=== PATIENT | male | born 1940 | race Caucasian/White ===

== ENCOUNTER → 2017-07-12 | Outpatient (CLI) | payer OTHER ==
[~2017-07-12] VITALS: Ht 175.3 cm; Wt 108.4 kg
[~2017-07-12] MED LIST: ASPIR 8181 M1 PO; ASPIR 8181 MG PO; CARDURA4 MG PO; COZAAR 50 MG TA50 M2 PO; GLIPIZIDE 10 MG10 MG PO; HYDROCODON-ACE1 EAC7 PO; IMDUR 30 MG TAB30 M1 PO; IRON325 PO; JARDIANCE25 MG PO; LIPITOR10 MG PO; METFORMIN HCL500 MG PO; NORVASC5 MG PO; ORPHENADRINE C100 M2 PO; PANTOPRAZOLE SO40 M1 PO; PROSCAR 5MG TABL5 MG PO; PROTONIX40 M1 PO; STOOL SOFTENER100 M1 PO; SYNTHROID75 MCG PO; SYNTHROID88 MCG PO; TRAMADOL 50 MG50 MG PO; TRESIBA FL100 UNIT/1 INJECTION; UNICOMPLEX M TA1 TA1 PO
--- NOTE | ~2017-07-12 | CATHLAB ---
[facility] [address] [address] INVASIVE PROCEDURE REPORT Name: GAMALIEL PAN Maria G Room #: REG [facility] [id number] Admission: 07/12/17 Attend Phys: Mathieu Mesa Discharge: Date of : 44 Date of Service: 07/16/17 1240 Report #: [id number] THIS REPORT FOR: //name// APPROVED REPORT Patient Details Patient Status: Out-Patient Room #: The patient is a 76 year-old male Event Personnel Mathieu Kaur Apparel Cutter, Anais Perez, Timi Leslie Penny, Wes RN, Maritza Godinez RN rn informatics Performed Art Access - R femoral artery* 78653 Initial Mod Sed Same Phys/QHP Gr5y [id number] Left Heart Cath w/or w/o Coronaries [id number] [facility] Hemostasis with Manual pressure, supervision of conscious sedation Indication Positive stress test, Chest pain Procedure Narrative The patient was brought electively to the Cardiac Catheterization Laboratory and was prepped and draped in a sterile manner. The Right Groin^ was infiltrated with 1% Lidocaine subcutaneous anesthesia. A PINNACLE 4FR Sheath #[id number] sheath was inserted into the RFA^. Coronary angiography was performed using coronary diagnostic catheters. The right coronary system was accessed and visualized with a JR 4 catheter. The left coronary system was accessed and visualized with a JL 5 catheter. The left ventricle was accessed and visualized with a Pigtail catheter. Left ventricular/Aortic Valve gradient assessed via catheter pullback. Hemostasis was obtained with manual pressure following sheath removal without any complications. The patient tolerated the procedure well and there were no complications associated with the procedure. There was no hematoma. Intraoperative Conscious Sedation Sedation start time: 10:00 Case end Time: 10:13 Versed 2.0 mg Fluoro Time: 2.14 minutes Dose: DAP 4346.00 cGycm2 653 mGy [facility] [place] [address] INVASIVE PROCEDURE REPORT Name: GAMALIEL PAN Room #: REG [facility]#: [id number] Admission: 07/12/17 Attend Phys: Mathieu Mesa Discharge: Date of : 44 Date of Service: 07/16/17 1240 Report #: [id number] Contrast Type and Amount: Omnipaque 60 ml Coronary Angiography The patient's coronary anatomy is right dominant. Diagnostic Cath Left Main Normal origin and caliber free of significant obstructive lesions. Left anterior descending left circumflex. LAD Small to moderate caliber vessel type III. It courses in the anterior interventricular sulcus. The proximal segment there is a previously placed stent which is widely patent without any obstructive lesions identified. The LAD then continues on giving rise to septal and diagonal branches. There appears to be a bend in the vessel and less than 50% lesion beyond the PVC mentioned stent. The vessel then tapers towards the apex and terminates post-rest left ventricular chamber free of high-grade disease. Diagonal 1 Small-caliber vessel without significant high-grade obstructive lesions Circumflex Small to moderate caliber vessel nondominant. Courses posteriorly giving rise to posterior lateral wall marginal branches which are free of high-grade disease although there is evidence of luminal irregularities in its course. OM1 Small caliber vessel moderate luminal irregularities noted no high-grade lesions present OM2 All caliber vessel in the posterior lateral wall free of high-grade disease although there is evidence of luminal irregularities Right Coronary Large-caliber vessel normal origin with luminal irregularities of less than 30% identified. It gives her some marginal branches free of high-grade disease. And continues posteriorly giving rise to posterior wall branch and posterior descending artery with irregularities noted but no high-grade lesions R PDA Moderate caliber vessel coursing in the posterior interventricular sulcus free of high-grade disease Left Ventriculography Left Ventriculography was not performed. Hemodynamics The aortic pressure is 135/64 mmHg with a mean of 95 mmHg. The left ventricular pressure is 126/19 mmHg with a mean of mmHg. The left ventricular end diastolic pressure is 26 mmHg. Conclusion [facility] [address] [place] [address] INVASIVE PROCEDURE REPORT Name: GAMALIEL PAN Room #: REG Sybil#: [id number] Admission: 07/12/17 Attend Phys: Mathieu Mesa Discharge: Date of : 44 Date of Service: 07/16/17 1240 Report #: [id number] 1. Coronary artery disease nonobstructive three-vessel 2. Abnormal hemodynamics with mildly elevated left ventricular end-diastolic pressures Recommendations Cardiac Risk Reduction Program Aggressive Medical Therapy <ELECTRONICALLY SIGNED> By: Mathieu Kaur MD 07/16/17 1240 1240 1240 Mathieu Kaur MD /INF
--- NOTE | ~2017-07-12 | EKG ---
[place] [address] [address] [place] [address] ELECTROCARDIOGRAM REPORT Name: GAMALIEL PAN Room #: REG [facility] [id number] Admission: 07/12/17 Attend Phys: Mathieu Kaur Discharge: Date of : 42 Report #: [id number] THIS REPORT FOR: //name// [facility] Test Date: 2017-07-12 Test Time: 08:02:27 Pat Name: GAMALIEL PAN Department: Room: Gender: Rehabilitation Therapy Aide: Pascale GÓMEZ : 1940 Requested By: Mathieu Kaur Order Number: [id number] MD: Adriel Bhagat Measurements Intervals [place] Rate: 70 P: -7 [place]: 167 QRS: -12 QRSD: 100 T: 34 QT: 390 QTc: 421 Interpretive Statements Sinus rhythm Normal tracing Compared to ECG 07/15/2008 07:32:22 Sinus bradycardia no longer present Electronically Signed On 07-12-2017 8:42:35 [employer]ER by Adriel Bhagat [email or web address] <ELECTRONICALLY SIGNED> By: Adriel Bhagat MD, [facility] 07/12/1742 1 1 Adriel Bhagat MD, [facility] /EPI
[2017-07-12 08:17] VITALS: BP 141/64
[2017-07-12 08:58] LABS: WBC 5.2 thou/uL (4.0-11.0)
[2017-07-12 09:01] LABS: HEMATOCRIT 22.2 % (42.0-52.0); HEMOGLOBIN 6.5 gm/dL (14.0-18.0); MCH 16.8 pg (26.0-34.0); MCHC 29.1 g/dL (28.0-37.0); MCV 57.5 fL (80.0-100.0); RBC 3.86 mil/uL (4.50-6.00); RDW 19.3 % (10.5-14.5)
[2017-07-12 09:08] LABS: CALCIUM 8.7 mg/dL (8.5-10.1)
== END ==
LOC: CATH 07:12
PROVIDERS: Internal Medicine
DX: I25.10 Atherosclerotic heart disease of native coronary artery without angina pectoris (principal); I10 Essential (primary) hypertension; E11.9 Type 2 diabetes mellitus without complications; E03.9 Hypothyroidism, unspecified; E78.5 Hyperlipidemia, unspecified; Z98.890 Other specified postprocedural states; Z95.5 Presence of coronary angioplasty implant and graft; Z79.899 Other long term (current) drug therapy; Z87.891 Personal history of nicotine dependence; Z79.82 Long term (current) use of aspirin

== ENCOUNTER 2017-08-30 15:15 | Inpatient (IN) | payer OTHER ==
[2017-08-30] VITALS (32 sets, daily range): BP systolic 94–139; BP diastolic 50–90
[~2017-08-30] VITALS: Ht 175.3 cm; Wt 103.4 kg
--- NOTE | ~2017-08-30 | P ---
[facility] [place] [address] PROCEDURE REPORT Name: GAMALIEL PAN Room #: 242-P ADM IN M.R.#: [id number] Admission: 08/30/17 Attend Phys: Joselo Marrero MD Discharge: Date of : 42 Report #: [id number] THIS REPORT FOR: //name// CC: Joselo Desai PROCEDURE PERFORMED: Upper endoscopy, diagnostic. PHYSICIAN: Pancho Eric MD MEDICATIONS: Fentanyl 75 mcg IV, Versed 3 mg IV. DESCRIPTION OF PROCEDURE: Please see initial consultation for details. The patient admitted with severe anemia. CT scan does not show any retroperitoneal bleed. Decision was to proceed with an EGD. Troponin levels are elevated, likely due to demand ischemia. I had a discussion with Cardiology prior to proceeding with an EGD today. Risks and benefits of procedure were discussed with the patient and he is agreeable to proceed. Anesthesia was not available for propofol sedation as they were occupied in the operating room with surgical procedures. Hence, conscious sedation was used. The patient was placed in left lateral decubitus position and medication was administered sequentially as above to achieve optimal sedation. Once optimal sedation was achieved, the Fujinon gastroscope was introduced under direct visualization through the oropharynx. The exam was completed to the second portion of duodenum. The esophagus was unremarkable and GE junction did not show any strictures or tears. Mild grade 1 reflux esophagitis was noted in the distal esophagus. On entering the stomach, green bilious fluid were noted that was suctioned out. Careful examination of the stomach including retroflexed view of the stomach did not show any ulcers or bleeding. There was no stigmata of bleeding. There was mild diffuse gastritis noted. The Fujinon gastroscope was then intubated through the pylorus into the duodenal bulb and examined from the second portion of the duodenum. The scope was then withdrawn without any immediate complication. POSTPROCEDURE DIAGNOSES AND FINDINGS: 1. No evidence of ulcer or bleeding/stigmata of bleeding to explain his severe anemia. 2. Mild diffuse gastritis and mild grade 1 reflux esophagitis are the only findings on exam today. RECOMMENDATIONS: 1. Change PPI to pantoprazole 40 mg IV daily. 2. Advance diet as tolerated. 3. Consideration for colonoscopy will be considered in the near future depending on clinical course. [address] [address] PROCEDURE REPORT Name: GAMALIEL PAN Room #: 242-P [facility] IN .R.#: [id number] Admission: 08/30/17 Attend Phys: Joselo Marrero MD Discharge: Date of : 42 Report #: [id number] Thank you for allowing me to participate in the care of the patient. <ELECTRONICALLY SIGNED> By: Pancho Eric MD 08/31/17 1656 1225 1639 Pancho Eric MD /nt
--- NOTE | ~2017-08-30 | HC ---
[facility] [place] [address] CONSULTATION Name: GAMALIEL PAN Room #: 355-P ADM IN M.R.#: [id number] Admission: 08/30/17 Attend Phys: Joselo Marrero MD Discharge: Date of : 42 Report #: [id number] THIS REPORT FOR: //name// CC: Joselo Desai TYPE OF REPORT: Infectious disease consultation. REASON FOR CONSULTATION: I was asked to evaluate concerning suspected septic shock. HISTORY OF PRESENT ILLNESS: The patient is a 76-year old with underlying history of coronary disease, diabetes, who 6 weeks ago, underwent coronary catheterization at [facility] outpatient clinic. He had a previous stent. No treatable lesion was identified. He was discharged home after the procedure. It was noted that his hemoglobin was 6.5 at that time. I found no record of further intervention. He has been visiting his who is on hospice earlier today. Developed nausea and vomiting. He vomited twice. He stated no blood. Second time he passed out, landed on the ground. It was difficult to arouse and he was brought into the Emergency Room at [facility]. There he was hypotensive. He has received IV fluids and when his hemoglobin was identified at 6.1, he was given blood transfusion. He was then transported to [facility] for further treatment. Blood pressure on admission was in the 80, systolic. The patient now is alert and responsive. He stated that prior to today, he felt well. He has had no diarrhea. No melena or hematochezia. Again noted that the emesis was of normal color. He does take aspirin. REVIEW OF SYSTEMS: Notes no rash. No headache. No chest pain. Denies any injury when he passed out. The nausea has resolved. He has had no dysuria or frequency. No arthritis or rash. ALLERGIES: None known. MEDICATIONS: As noted on his MAR including Norvasc, aspirin, Lipitor, Synthroid, Glucophage, multivitamin, Glucotrol, , testosterone, insulin and Imdur. He was given dose of cefepime in the Emergency Room followed by meropenem and a dose of vancomycin. PAST MEDICAL HISTORY: Hypertension, coronary artery disease, coronary stent, total knee arthroplasty and BPH. FAMILY HISTORY: Noncontributory. SOCIAL HISTORY: He is a past smoker. No significant alcohol intake. 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 [address] [address] CONSULTATION Name: GAMALIEL PAN Room #: 355-P [facility] IN [facility]#: [id number] Admission: 08/30/17 Attend Phys: Joselo Marrero MD Discharge: Date of : 42 Report #: [id number] REVIEW OF SYSTEMS: As noted above. PHYSICAL EXAMINATION: VITAL SIGNS: He is afebrile, blood pressure 114/56 and heart rate 86. He is on 8 liters of oxygen per nasal cannula. GENERAL: He was alert and cooperative. He gave a reasonable history. HEENT: Unremarkable. NECK: Supple. No adenopathy. No rash. No decubiti. CHEST: Clear. HEART: Regular, without murmur. ABDOMEN: Moderately distended but nontender. No hepatosplenomegaly or mass appreciated. Normal bowel sounds. GENITALIA: External genitalia unremarkable with indwelling Tolliver catheter. Right groin was normal. There were no palpable masses. LABORATORY DATA: When he presented to the Emergency Room, his hemoglobin was 6.1; WBC 3.5 and platelet count 331,000. Differential was unremarkable. Urinalysis was unremarkable. Creatinine 1.4, BUN 20, sodium 142, potassium 3.3 and bicarbonate of 19. Liver function test normal. Troponin negative. BNP 64. Lactate 5. He had received 1 unit of blood transfusion prior to his transfer; hemoglobin here 7.3; WBC 11.5 and platelet count 292,000. Differential unremarkable. Glucose 163. Lactate down to 3. Procalcitonin 34. INR 1. ABG on 8 liters showed a pO2 of 92, pCO2 34 and pH 7.32. RADIOLOGICAL DATA: Chest x-ray, no acute pulmonary infiltrate and mild cardiomegaly. IMPRESSION: A 76-year old presents with shock, anemia, gastroenteritis with emesis leading to a syncopal episode. So far no evidence of infection identified. Also, no evidence of bleeding source identified. It is noted that 6 weeks ago, his hemoglobin was 6.5. The patient was unaware of this. I am unclear if this has been worked up any further. It is also noted that the hemoglobin was 6.5 before his procedure. This would make a retroperitoneal hematoma less likely. He has had no back pain or changes in his leg strength or sensation. RECOMMENDATIONS: We will obtain cultures of blood and repeat his chest x-ray. Continue broad antibiotic coverage for healthcare-associated organisms considering his recent catheterization. We would have Cardiology followup regarding his syncopal episode, although I suspect it was most likely vasovagal [facility] [address] [place] [address] CONSULTATION Name: GAMALIEL PAN Room #: 355-P ADM IN M.R.#: [id number] Admission: 08/30/17 Attend Phys: Joselo Marrero MD Discharge: Date of : 42 Report #: [id number] after his vomiting episode. He will have serial CBCs. Gastrointestinal service is following. Agree with plan for CT scan of abdomen and pelvis. <ELECTRONICALLY SIGNED> By: Abraham Campos MD 09/02/17 0815 2033 2141 Abraham Campos MD /nt
--- NOTE | ~2017-08-30 | HC ---
[facility] [place] [address] CONSULTATION Name: GAMALIEL PAN Room #: 242-P ADM IN M.R.#: [id number] Admission: 08/30/17 Attend Phys: Joselo Marrero MD Discharge: Date of : 42 Report #: [id number] THIS REPORT FOR: //name// CC: Joselo Desai DATE OF SERVICE: 08/30/2017 PULMONARY CONSULTATION REFERRAL PHYSICIAN: Dr. Marrero. REASON FOR REFERRAL: Hypoxia. HISTORY OF PRESENT ILLNESS: The patient is a 76-year-old white male who was transferred from [facility] for syncopal episode. He was found to be anemic, hypotensive. A pulmonary consultation was requested. The patient was visiting his who is terminal, he then had a syncopal episode. He was brought to the [facility]. Initial study showed hemoglobin of 6.1. He was hypotensive. He was subsequently transferred to [facility]. When he arrived, he was found to be hypoxic. He was placed on high flow O2 with saturation around 97%. The patient states that he has smoked in the past. He has never been diagnosed with COPD. He does not have specific complaints, though he states that he does not feel well. He denies any abdominal pain. Denies any recent nausea, vomiting, diarrhea, hematemesis, hematochezia, melena, hematuria or polyuria. PAST MEDICAL HISTORY: Notable for hypertension, coronary artery disease, mild disease based on recent cardiac catheterization in July 2017, diabetes mellitus type 2. PAST SURGICAL HISTORY: Unremarkable. ALLERGIES: None. HOME MEDICATIONS: List are reviewed including insulin, multivitamins, Proscar, aspirin, Cardura, metformin, levothyroxine, amlodipine, Norvasc, glipizide, Lipitor, losartan, Imdur. FAMILY HISTORY: Noncontributory. [facility] [address] [place] [address] CONSULTATION Name: GAMALIEL PAN Room #: 242-P [facility] IN [facility]#: [id number] Admission: 08/30/17 Attend Phys: Joselo Marrero MD Discharge: Date of : 42 Report #: [id number] SOCIAL HISTORY: He has smoked in the past. Denies any alcohol use. He is . REVIEW OF SYSTEMS: As mentioned above, otherwise somewhat limited as the patient is not a good historian at present. He is awake, alert, but says he is okay without specific complaints. PHYSICAL EXAMINATION: GENERAL: He is awake, alert, appears moderately distressed. VITAL SIGNS: Temperature is 98 degrees Fahrenheit, pulse is 81, respiratory rate is 20, blood pressure is 100/54 mmHg, saturation 97%. HEENT: Unremarkable. NECK: Supple, no lymphadenopathy or thyromegaly. CHEST: Breath sounds are fair without any obvious rales or wheezes. CARDIOVASCULAR: Normal S1, S2. No murmurs or gallop. There is no JVD, no carotid bruit. Pulses are 2+/4+ bilaterally. ABDOMEN: Soft, nontender, no organomegaly or masses felt. GENITOURINARY: Deferred. RECTAL: Deferred. EXTREMITIES: There is no edema, cyanosis or clubbing. LABORATORY DATA: Chest x-ray shows mild cardiomegaly, small lung volumes, mild increase in pulmonary vascular markings, no obvious infiltrate. Arterial blood gas revealed pH 7.32, pCO2 of 34, pO2 of 92 on 8 liters of O2. The rest of the laboratory is pending. IMPRESSION: 1. Syncope, hypotension, anemia in this 76-year-old white male. His hemoglobin was measured at 6.1. He has a history of peptic ulcer disease diagnosed about 30 years ago. Suspect upper gastrointestinal bleed as a source for his anemia resulting in hypotension. 2. Hypoxia. The patient has smoked, but denies any past history of chronic obstructive pulmonary disease. Hypoxia is due to profound anemia. Since the patient has smoked in the past, we will initiate bronchodilators. 3. Hypertension. 4. Diabetes mellitus, type 2. 5. Hypothyroidism. RECOMMENDATIONS: Agree with current management including IV fluids. Deep venous thrombosis and gastrointestinal prophylaxis recommended, though we will hold anticoagulants as heparin products for now given possibility of gastrointestinal bleed. Gastroenterology has been consulted. We will start the bronchodilators. Wean O2 for saturation 90%. At this time, I do not think the patient has underlying chronic obstructive pulmonary disease. [address] [place] [address] CONSULTATION Name: GAMALIEL PAN Maria G Room #: 242-P [facility] IN M.R.#: [id number] Admission: 08/30/17 Attend Phys: Joselo Marrero MD Discharge: Date of : 42 Report #: [id number] We will need to monitor the patient closely given the blood transfusion for possible transfusion-related acute lung injury. Thank you for this consultation. <ELECTRONICALLY SIGNED> By: Donal Calderon MD 08/31/17 1431 1756 0404 Donal Calderon MD /nt
--- NOTE | ~2017-08-30 | EKG ---
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 : 1940 Requested By: Donal Calderon Order Number: [id number] MD: Adriel Bhagat Measurements Intervals [place] Rate: 81 P: 34 [place]: 164 QRS: -23 QRSD: 100 T: 47 QT: 368 QTc: 428 Interpretive Statements Sinus rhythm Inferior infarct, old Compared to ECG 07/12/2017 08:02:27 No significant change was found Electronically Signed On 08-31-2017 12:23:07 CDT by Adriel Bhagat [email or web address] <ELECTRONICALLY SIGNED> By: Adriel Bhagat MD, [facility] 08/31/17 1223 1039 1039 Adriel Bhagat MD, [facility] /EPI
--- NOTE | ~2017-08-30 | HC ---
[facility] [place] [address] CONSULTATION Name: GAMALIEL PAN Room #: 355-P [facility] IN M.R.#: [id number] Admission: 08/30/17 Attend Phys: Joselo Marrero MD Discharge: 09/02/17 Date of : 42 Report #: [id number] THIS REPORT FOR: //name// CC: Joselo Desai REASON FOR CONSULTATION: Elevated troponin. HISTORY OF PRESENT ILLNESS: The patient is a 76-year-old gentleman with a history of remote LAD stenting in 1995. His history includes hypertension, diabetes and dyslipidemia. He has recently been evaluated by Dr. Mathieu Kaur and underwent coronary angiography on 07/12/2017. This demonstrated mild nonobstructive 3-vessel coronary artery disease. Medical therapy was recommended. Ventriculography was not performed. Now, presents following a syncopal episode that occurred while he was visiting his who is in hospice. He had vomited twice, no blood. Second time he vomited, he passed out and was difficult to arouse. He went to the Emergency Room at [facility] where he was hypotensive and had a hemoglobin of 6.1. On arrival here, his blood pressure was in the 80s. With fluid resuscitation, his blood pressure is improved. He denies chest heaviness or pressure. No heart failure symptoms including orthopnea, paroxysmal nocturnal dyspnea, or lower extremity edema. No history of near syncope or syncope. ALLERGIES: No known drug allergies. MEDICATIONS: Include amlodipine 5 mg daily, aspirin 81 mg daily, atorvastatin 10 mg daily, glipizide 10 mg twice daily, Imdur 30 mg daily, Jardiance 25 mg daily, levothyroxine 75 mcg daily, losartan 50 mg daily, Glucophage 1000 mg twice daily, and a multivitamin. PAST MEDICAL HISTORY: His past history and medical records have been reviewed and includes a history of coronary artery disease with remote stenting, hypertension, dyslipidemia, diabetes, total knee replacement, BPH. SOCIAL HISTORY: He is a former smoker, nondrinker. FAMILY HISTORY: Unremarkable for premature coronary artery disease. REVIEW OF SYSTEMS: All systems negative except as that noted above. PHYSICAL EXAMINATION: GENERAL: He is a pleasant gentleman who is alert and in no distress. VITAL SIGNS: Blood pressure is 103/52, heart rate of 90 and regular. He is afebrile, 5 feet 9 inches tall, 230 pounds. HEENT: There are neither xanthelasma, subcutaneous xanthomata, oral mucosal or digital cyanosis or [place] [address] CONSULTATION Name: GAMALIEL PAN Room #: 355-P [facility] IN ..#: [id number] Admission: 08/30/17 Attend Phys: Joselo Marrero MD Discharge: 09/02/17 Date of : 42 Report #: [id number] CHEST: Clear to auscultation and percussion. CARDIOVASCULAR: Regular rate and rhythm with normal S1, S2. No murmurs or rubs. ABDOMEN: Soft and nontender. EXTREMITIES: Without cyanosis, clubbing or edema. Radial pulses are 2+. NEUROLOGIC: He is alert with a nonfocal exam. LABORATORY DATA: EKG: Normal sinus rhythm, normal tracing. Sodium 141, potassium 3.9, creatinine 1.0. Troponin 4.4. White count 10.2, hemoglobin 6.8, platelet count 245. Chest x-ray demonstrates a prominent aortic arch. IMPRESSION: 1. Non-Q-wave myocardial infarction. 2. Hypovolemic shock with syncope. 3. Gastrointestinal blood loss, severe anemia. 4. Coronary artery disease with nonocclusive coronary artery disease by very recent angiography. 5. Diabetes. 6. Hypertension. RECOMMENDATIONS: 1. Medical therapy for coronary artery disease. Antiplatelet therapy is currently contraindicated. I will review his most recent coronary angiograms. 2. We would consider transfusion therapy. I have discussed these issues with the patient. Thank you for asking me to participate in his care. <ELECTRONICALLY SIGNED> By: Adriel Bhagat MD, FACC 09/04/17 0822 1145 1604 Adriel Bhagat MD, FAC /nt
[~2017-08-30 15:15] MED LIST changes: -HYDROCODON-ACE1 EAC7 PO; -IRON325 PO; -ORPHENADRINE C100 M2 PO; -PANTOPRAZOLE SO40 M1 PO; -PROTONIX40 M1 PO; -STOOL SOFTENER100 M1 PO; -SYNTHROID88 MCG PO; -TRAMADOL 50 MG50 MG PO
[2017-08-30 16:18] LABS: HCO3 17.3 mmol/L (22.0-26.0); PCO2 34.2 mmHg (35.0-45.0); PO2 92.1 mmHg (80.0-100.0); pH 7.322 (7.360-7.450); sO2 96.6 % (92.0-98.0)
[2017-08-30 18:18] LABS: HEMATOCRIT 25.7 % (42.0-52.0); HEMOGLOBIN 7.3 gm/dL (14.0-18.0); MCH 17.1 pg (26.0-34.0); MCHC 28.2 g/dL (28.0-37.0); MCV 60.6 fL (80.0-100.0); PLATELET COUNT 292 thou/uL (150-400); RBC 4.25 mil/uL (4.50-6.00); RDW 24.3 % (10.5-14.5); WBC 11.5 thou/uL (4.0-11.0)
[2017-08-30 18:22] LABS: CALCIUM 7.8 mg/dL (8.5-10.1); CREATININE 1.5 mg/dL (0.7-1.3); POTASSIUM 4.2 mmol/L (3.5-5.1)
[2017-08-30 18:26] LABS: APTT 23.8 Seconds (24.5-32.8); FIBRINOGEN 285.5 mg/dL (210-360); PROTIME 10.6 Seconds (9.3-11.4)
[2017-08-30 18:28] LABS: ALBUMIN 3.2 g/dL (3.4-5.0); TOTAL BILIRUBIN 0.4 mg/dL (<0.1-1.0); TROPONIN-I 0.17 ng/mL (<0.06)
[2017-08-30 18:40] LABS: ABSOLUTE NEUTROPHILS 10.6 thou/uL (1.4-8.2); ANISOCYTOSIS 3+; HYPOCHROMASIA 3+; MICROCYTES 3+; POIKILOCYTOSIS 1+; POLYCHROMASIA OCCASIONAL
[2017-08-30 18:41] LABS: OVALOCYTES FEW
[2017-08-30 20:29] LABS: URINE BILIRUBIN NEGATIVE (Negative); URINE BLOOD 1+ (Negative); URINE CLARITY CLEAR; URINE COLOR YELLOW; URINE GLUCOSE-RANDOM* 3+ (Negative); URINE KETONES 1+ (Negative); URINE LEUKOCYTES-REFLEX NEGATIVE (Negative); URINE NITRITE-REFLEX NEGATIVE (Negative); URINE PROTEIN (DIPSTICK) TRACE (Negative); URINE UROBILINOGEN 0.2 E.U./dl (0.2-1.0)
[2017-08-30 20:38] LABS: CASTS None Seen /LPF (None Seen); CRYSTALS None Seen /LPF (None Seen); SQUAMOUS 0-3 Few /LPF (0-3)
[2017-08-30 20:39] LABS: BACTERIA-REFLEX 1-9 Few /HPF (None Seen); URINE RBC 3-10 Few /HPF (0-2); URINE WBC-REFLEX >25 Many /HPF (0-5)
[2017-08-30 22:46] LABS: CALCIUM 7.8 mg/dL (8.5-10.1); CREATININE 1.5 mg/dL (0.7-1.3); POTASSIUM 4.5 mmol/L (3.5-5.1)
[2017-08-30 22:49] LABS: TROPONIN-I 2.73 ng/mL (<0.06)
[2017-08-31] VITALS (87 sets, daily range): BP systolic 89–163; BP diastolic 47–97
[2017-08-31 03:12] LABS: CALCIUM 7.5 mg/dL (8.5-10.1); CREATININE 1.2 mg/dL (0.7-1.3); POTASSIUM 4.2 mmol/L (3.5-5.1)
[2017-08-31 03:24] LABS: TROPONIN-I 4.8 ng/mL (<0.06)
[2017-08-31 06:28] LABS: HEMOGLOBIN 6.8 gm/dL (14.0-18.0); MCH 17.8 pg (26.0-34.0)
[2017-08-31 06:30] LABS: MCHC 29.5 g/dL (28.0-37.0); MCV 60.2 fL (80.0-100.0); PLATELET COUNT 245 thou/uL (150-400); RBC 3.81 mil/uL (4.50-6.00); WBC 10.2 thou/uL (4.0-11.0)
[2017-08-31 06:40] LABS: CALCIUM 7.5 mg/dL (8.5-10.1); CREATININE 1.1 mg/dL (0.7-1.3); POTASSIUM 4.2 mmol/L (3.5-5.1)
[2017-08-31 09:40] LABS: ABSOLUTE NEUTROPHILS 9.1 thou/uL (1.4-8.2)
[2017-08-31 09:42] LABS: ANISOCYTOSIS 3+; BURR CELLS OCCASIONAL; HYPOCHROMASIA 3+; MICROCYTES 3+; OVALOCYTES 1+; POIKILOCYTOSIS 2+; SCHISTOCYTES 1+; TARGET CELLS OCCASIONAL
[2017-08-31 10:52] LABS: CALCIUM 7.8 mg/dL (8.5-10.1); POTASSIUM 3.9 mmol/L (3.5-5.1)
[2017-08-31 16:07] LABS: HEMATOCRIT 25.4 % (42.0-52.0); HEMOGLOBIN 7.7 gm/dL (14.0-18.0); MCH 18.6 pg (26.0-34.0); MCHC 30.3 g/dL (28.0-37.0); MCV 61.3 fL (80.0-100.0); RBC 4.14 mil/uL (4.50-6.00); RDW 27.5 % (10.5-14.5); WBC 8.7 thou/uL (4.0-11.0)
[2017-08-31 23:51] LABS: HEMATOCRIT 29.3 % (42.0-52.0); HEMOGLOBIN 8.9 gm/dL (14.0-18.0)
[2017-09-01] VITALS (30 sets, daily range): BP systolic 116–161; BP diastolic 52–87
[2017-09-01 04:35] LABS: CALCIUM 8.6 mg/dL (8.5-10.1); CREATININE 0.9 mg/dL (0.7-1.3); POTASSIUM 4.1 mmol/L (3.5-5.1)
[2017-09-01 04:39] LABS: % SATURATION 4 % (20-39); IRON 14 ug/dL (65-175); TIBC 381 ug/dL (250-450)
[2017-09-01 04:42] LABS: HEMATOCRIT 30.1 % (42.0-52.0); HEMOGLOBIN 9.2 gm/dL (14.0-18.0); MCH 19.6 pg (26.0-34.0); MCHC 30.5 g/dL (28.0-37.0); MCV 64.4 fL (80.0-100.0); PLATELET COUNT 237 thou/uL (150-400); RBC 4.67 mil/uL (4.50-6.00); RDW 29.7 % (10.5-14.5); WBC 9.2 thou/uL (4.0-11.0)
[2017-09-01 04:47] LABS: ABSOLUTE RETIC COUNT 0.0673 10^6/uL; OBSERVED RETIC COUNT 1.46 % (0.6-2.6)
[2017-09-01 05:21] LABS: ABSOLUTE NEUTROPHILS 8.2 thou/uL (1.4-8.2); ANISOCYTOSIS 3+; HYPOCHROMASIA 1+; MICROCYTES 2+
[2017-09-01 05:22] LABS: LARGE PLATELETS RARE; POLYCHROMASIA OCCASIONAL
[2017-09-01 15:09] LABS: GLYCOHEMOGLOBIN (HGB A1C) 6.3 % (4.8-5.6)
[2017-09-02 03:30] VITALS: BP 122/61
[2017-09-02 08:06] VITALS: BP 142/65
[2017-09-02] MEDS ORDERED: PANTOPRAZOLE SO40 M1 PO (09:43)
[2017-09-02] MEDS ORDERED: IRON325 PO (09:44)
[2017-09-02 11:20] VITALS: BP 142/65
== END 2017-09-02 11:53 | disposition home or self-care (01) | DRG 871 ==
LOC: ICU 15:15 → 3W 15:54 → ICU 15:54 → 3W 09-01 10:57 → ENTRNSPT 09-02 11:43 → EDTRNSPTSTS 09-02 11:44 → 3W 09-02 11:53
PROVIDERS: Hospitalist; Internal Medicine Infectious Disease; Internal Medicine Pulmonary Disease
PROC: 02HV33Z Insertion of Infusion Device into Superior Vena Cava, Percutaneous Approach (ICD-10-PCS; principal; 2017-08-30)
PROC: 30233N1 Transfusion of Nonautologous Red Blood Cells into Peripheral Vein, Percutaneous Approach (ICD-10-PCS; 2017-08-31)
PROC: 0DJ08ZZ Inspection of Upper Intestinal Tract, Via Natural or Artificial Opening Endoscopic (ICD-10-PCS; 2017-08-31)
DX: R57.1 Hypovolemic shock (principal); J96.01 Acute respiratory failure with hypoxia; I21.4 Non-ST elevation (NSTEMI) myocardial infarction; I25.10 Atherosclerotic heart disease of native coronary artery without angina pectoris; I10 Essential (primary) hypertension; E11.9 Type 2 diabetes mellitus without complications; Z96.659 Presence of unspecified artificial knee joint; N40.0 Benign prostatic hyperplasia without lower urinary tract symptoms; E03.9 Hypothyroidism, unspecified; R09.02 Hypoxemia; K20.9 Esophagitis, unspecified; K29.70 Gastritis, unspecified, without bleeding; K31.89 Other diseases of stomach and duodenum; K52.9 Noninfective gastroenteritis and colitis, unspecified; J44.9 Chronic obstructive pulmonary disease, unspecified; D50.9 Iron deficiency anemia, unspecified; I95.9 Hypotension, unspecified; Z88.8 Allergy status to other drugs, medicaments and biological substances; Z95.5 Presence of coronary angioplasty implant and graft; Z87.891 Personal history of nicotine dependence; Z82.49 Family history of ischemic heart disease and other diseases of the circulatory system; Z79.82 Long term (current) use of aspirin; Z79.899 Other long term (current) drug therapy
CPT/HCPCS: 10078; 10879; 27000

== ENCOUNTER 2017-10-16 12:49 | Inpatient (IN) | payer OTHER ==
[~2017-10-16] VITALS: Ht 172.7 cm; Wt 103.0 kg
--- NOTE | ~2017-10-16 | PATH ---
[facility] [place] [address] PATHOLOGY RPT PROCEDURE Name: JL PNA Room #: 227-P ADM IN M.R.#: [id number] Admission: 10/25/17 Date of : 44 Discharge: Report #: [id number] Path Case #: [id number] [facility] Accession Number: [id number] . 01 Material submitted: . RIGHT PHANI COLECTOMY . 01 Clinical history: . Colon cancer. . 02 Diagnosis: "Right hemicolectomy", colectomy: - INVASIVE ADENOCARCINOMA, MODERATELY DIFFERENTIATED, INVOLVING THE DISTAL CECUM/PROXIMAL COLON, MEASURING 5.6 CM GROSSLY, INVADING THROUGH THE MUSCULARIS PROPRIA AND INTO THE SUBSEROSAL ADIPOSE TISSUES (pT3); MARGINS FREE OF INVASIVE TUMOR, CLOSEST MARGIN (DISTAL) 10.3 CM AWAY. - Terminal ileum (17.5 cm) with mild reactive changes. - Appendix with minimal histologic alterations. - Lymph nodes (32) with no evidence of metastatic carcinoma. (32 nodes). - Omentum (13.5 cm) with minimal histologic alterations. LB/10/28/2017 . 02 Comment: Procedure: Right hemicolectomy Tumor Site: Cecum Tumor Size Greatest dimension: 5.6 cm Macroscopic Tumor Perforation: Not identified Histologic Type: Adenocarcinoma Histologic Grade: G2: Moderately differentiated Tumor Extension: Tumor invades through the muscularis propria and into pericolorectal tissue Margins: All margins are uninvolved by invasive carcinoma, high-grade dysplasia, intramucosal adenocarcinoma, and adenoma Margins examined: Proximal and distal . . For resection specimens only . Proximal Margin: Uninvolved by invasive carcinoma Distal Margin: Uninvolved by invasive carcinoma Radial or Mesenteric Margin: Not applicable Treatment Effect: No known presurgical treatment Lymphovascular Invasion: Not identified Perineural Invasion: Not identified Tumor Deposits: Not identified Regional Lymph [facility] [address] [address] PATHOLOGY RPT PROCEDURE Name: JL PAN Room #: 227-P [facility] IN M.R.#: [id number] Admission: 10/25/17 Date of : 44 Discharge: Report #: [id number] Path Case #: [id number] Number of Lymph Nodes Involved: 0 Number of Lymph Nodes Examined: 32 Pathologic Stage Classification (pTNM, AJCC 8th Edition) Primary Tumor (pT) pT3: Tumor invades through the muscularis propria and into pericolorectal tissues Regional Lymph Nodes (pN) pN0: No regional lymph node metastasis . [facility] slides (A7 and A9) are co-reviewed with Dr. Graciela Zimmerman. Clinical correlation is recommended. (CLW:ryne; 10/28/2017) . . 02 Electronically signed: . Nisha Lima MD, Pathologist NPI- [id number] . 01 Gross description: . Received in formalin labeled "Jl Pan, right hemicolectomy" is a colon resection specimen consisting of a portion of terminal ileum (17.5 x 2.1 cm), cecum (9.0 x 6.5 x 5.4 cm), vermiform appendix (11.3 x 0.7 cm), and proximal colon (10.5 x 3.9 cm). The proximal and distal margins are closed with staple lines. The serosa is pink-casanova and smooth with an adherent portion of omentum (13.5 x 8.6 x 2.8 cm). The staple lines are removed and the specimen is opened to reveal a pink-casanova well circumscribed nodular mass within the distal cecum/proximal colon, which measures 5.0 cm in length and 5.6 cm in width. The mass is nearly circumferential. The mass is located 25.2 cm from the proximal margin, 10.3 cm from the distal margin, and 3.6 cm from the closest mesenteric margin. The mass measures 4.7 cm to the ileocecal valve and 7.6 cm to the appendiceal orifice. Upon sectioning, the mass focally extends through the muscle wall and into the pericolonic fat, and has a greatest third dimension of 1.5 cm. . The attached portion of omentum is serially sectioned to reveal a casanova-yellow lobulated cut surface with no tumor nodules or other abnormalities. The appendix is removed and sectioned to reveal no fecaliths or perforations, and an average luminal diameter of 0.2 cm. The uninvolved terminal ileum is pink-casanova and grossly unremarkable, and the colonic mucosa is pink-casanova with slightly flattened but otherwise grossly unremarkable folding. The ileocecal valve appears edematous and has a fatty cut surface. The mesenteric fat is palpated to reveal multiple pink-casanova lymph nodes ranging from 0.3-1.3 cm in greatest dimension. [facility] sections of the specimen are submitted as follows: A1 proximal mucosal margin A2 distal mucosal margin A3 closest mesenteric margin to mass A4 outside medical sales representative ileocecal valve [facility] [address] [address] PATHOLOGY RPT PROCEDURE Name: JL PAN Room #: 227-P ADM IN M.R.#: [id number] Admission: 10/25/17 Date of : 44 Discharge: Report #: [id number] Path Case #: [id number] A5 outside medical sales representative appendix and one half of the distal tip A6 outside medical sales representative omentum A7 mass with deepest invasion A8 mass to uninvolved colon mucosa A9-A11 additional outside medical sales representative sections of mass A12 mass to serosa (inked black) A13-A16 multiple whole lymph node in each cassette A17-A21 two bisected lymph nodes in each cassette, one inked black ([facility];10/27/2017) [facility] . 02 CPT . 352402, [id number], [id number] Performed at: 01 [facility] [address], [place] [id number] MD German Garcia MD Phone: [phone] Performed at: 02 [facility] [address], [place] [id number] MD Graciela Zimmerman MD Phone: [phone]
[~2017-10-16 12:49] MED LIST changes: +IRON325 PO; +PANTOPRAZOLE SO40 M1 PO
[2017-10-22] MEDS ORDERED: SYNTHROID88 MCG PO (13:15)
[2017-10-22] MEDS ORDERED: STOOL SOFTENER100 M1 PO (13:17)
[2017-10-22] MEDS ORDERED: IRON325 PO (13:35)
[2017-10-22] MEDS ORDERED: PROTONIX40 M1 PO (13:36)
[2017-10-25 07:24] LABS: HEMATOCRIT 33.3 % (42.0-52.0); HEMOGLOBIN 10.5 gm/dL (14.0-18.0)
[2017-10-25 10:02] LABS: BE(vivo) -3.5 mmol/L (-2 to +3); HCO3 27.4 mmol/L (22.0-26.0); PCO2 87.8 mmHg (35.0-45.0); PO2 172.1 mmHg (80.0-100.0); pH 7.112 (7.360-7.450); sO2 98.5 % (92.0-98.0)
[2017-10-25 11:53] VITALS: BP 136/60
[2017-10-25 16:30] VITALS: BP 117/55
[2017-10-25 18:03] LABS: BE(vivo) -0.6 mmol/L (-2 to +3); HCO3 22.9 mmol/L (22.0-26.0); PCO2 33.4 mmHg (35.0-45.0); PO2 64.6 mmHg (80.0-100.0); pH 7.454 (7.360-7.450); sO2 93.8 % (92.0-98.0)
[2017-10-25 20:13] VITALS: BP 111/71
[2017-10-26 04:36] VITALS: BP 126/56
[2017-10-26 05:58] LABS: ABSOLUTE NEUTROPHILS 8.1 thou/uL (1.4-8.2); BASOPHILS 0.6 % (0.0-2.0); EOSINOPHILS 0.2 % (0.0-3.0); HEMATOCRIT 28.6 % (42.0-52.0); HEMOGLOBIN 9.1 gm/dL (14.0-18.0); LYMPHOCYTES 7.5 % (24.0-44.0); MCHC 31.8 g/dL (28.0-37.0); MCV 72.2 fL (80.0-100.0); MONOCYTES 8.9 % (1.0-8.0); PLATELET COUNT 234 thou/uL (150-400); POLYS 82.8 % (36.0-66.0); RBC 3.96 mil/uL (4.50-6.00); RDW 27.1 % (10.5-14.5); WBC 9.7 thou/uL (4.0-11.0)
[2017-10-26 06:06] LABS: CALCIUM 8.3 mg/dL (8.5-10.1); MAGNESIUM 2.4 mg/dL (1.8-2.4); POTASSIUM 4.1 mmol/L (3.5-5.1)
[2017-10-26 07:09] LABS: ANISOCYTOSIS 2+; HYPOCHROMASIA 2+; OVALOCYTES 2+; POIKILOCYTOSIS 2+; POLYCHROMASIA 1+
[2017-10-26 07:27] VITALS: BP 125/58
[2017-10-26 15:25] VITALS: BP 134/52
[2017-10-26 20:01] VITALS: BP 150/65
[2017-10-27 03:07] VITALS: BP 159/66
[2017-10-27 04:29] LABS: ABSOLUTE NEUTROPHILS 7.6 thou/uL (1.4-8.2); BASOPHILS 0.7 % (0.0-2.0); EOSINOPHILS 2.5 % (0.0-3.0); HEMATOCRIT 29.4 % (42.0-52.0); HEMOGLOBIN 9.2 gm/dL (14.0-18.0); LYMPHOCYTES 8.7 % (24.0-44.0); MCH 22.6 pg (26.0-34.0); MCHC 31.2 g/dL (28.0-37.0); MCV 72.4 fL (80.0-100.0); MONOCYTES 6.7 % (1.0-8.0); PLATELET COUNT 238 thou/uL (150-400); POLYS 81.4 % (36.0-66.0); RBC 4.05 mil/uL (4.50-6.00); RDW 27.2 % (10.5-14.5); WBC 9.4 thou/uL (4.0-11.0)
[2017-10-27 04:41] LABS: CALCIUM 8.6 mg/dL (8.5-10.1); CREATININE 0.9 mg/dL (0.7-1.3); POTASSIUM 4.2 mmol/L (3.5-5.1)
[2017-10-27 07:05] VITALS: BP 154/75
[2017-10-27 08:22] LABS: ANISOCYTOSIS 3+; HYPOCHROMASIA 2+; MICROCYTES 2+
[2017-10-27 08:23] LABS: OVALOCYTES FEW; POLYCHROMASIA OCCASIONAL
[2017-10-27 17:28] VITALS: BP 137/77
[2017-10-27 20:31] VITALS: BP 146/69
[2017-10-28 07:20] VITALS: BP 128/80
[2017-10-28 07:57] LABS: ABSOLUTE NEUTROPHILS 4.9 thou/uL (1.4-8.2); BASOPHILS 0.7 % (0.0-2.0); EOSINOPHILS 5.7 % (0.0-3.0); HEMATOCRIT 30.2 % (42.0-52.0); HEMOGLOBIN 9.5 gm/dL (14.0-18.0); LYMPHOCYTES 13.2 % (24.0-44.0); MCH 22.8 pg (26.0-34.0); MCHC 31.5 g/dL (28.0-37.0); MCV 72.2 fL (80.0-100.0); MONOCYTES 8.3 % (1.0-8.0); PLATELET COUNT 226 thou/uL (150-400); POLYS 72.1 % (36.0-66.0); RBC 4.19 mil/uL (4.50-6.00); RDW 26.5 % (10.5-14.5); WBC 6.8 thou/uL (4.0-11.0)
[2017-10-28 08:08] LABS: CALCIUM 8.8 mg/dL (8.5-10.1); CREATININE 0.9 mg/dL (0.7-1.3); POTASSIUM 4.1 mmol/L (3.5-5.1)
[2017-10-28 08:47] LABS: ANISOCYTOSIS 2+
[2017-10-28 08:48] LABS: HYPOCHROMASIA 2+; MICROCYTES 2+; PLATELET ESTIMATE NORMAL; SCHISTOCYTES 1+
[2017-10-28 19:41] VITALS: BP 147/66
[2017-10-29 08:10] VITALS: BP 136/68
[2017-10-29] MEDS ORDERED: HYDROCODON-ACE1 EAC7 PO (09:24)
[2017-10-29] MEDS ORDERED: TRAMADOL 50 MG50 MG PO (09:24)
[2017-10-29] MEDS ORDERED: ORPHENADRINE C100 M2 PO (09:24)
[2017-10-29 12:31] VITALS: BP 136/68
== END 2017-10-29 15:25 | disposition home or self-care (01) | DRG 329 ==
LOC: PRE 12:49 → TBA 10-25 05:52 → SICU 10-25 05:52 → PRE 10-25 13:12 → 4N 10-25 16:29 → SICU 10-27 20:08 → ENTRNSPT 10-29 15:12 → EDTRNSPTSTS 10-29 15:16 → SICU 10-29 15:25
PROVIDERS: Nurse Practitioner; Surgery
PROC: 0DTF4ZZ Resection of Right Large Intestine, Percutaneous Endoscopic Approach (ICD-10-PCS; principal; 2017-10-25)
DX: C18.2 Malignant neoplasm of ascending colon (principal); E43 Unspecified severe protein-calorie malnutrition; E03.9 Hypothyroidism, unspecified; E11.9 Type 2 diabetes mellitus without complications; K21.9 Gastro-esophageal reflux disease without esophagitis; Z96.652 Presence of left artificial knee joint; R09.02 Hypoxemia; I10 Essential (primary) hypertension; E78.5 Hyperlipidemia, unspecified; I25.10 Atherosclerotic heart disease of native coronary artery without angina pectoris; Z88.8 Allergy status to other drugs, medicaments and biological substances; Z87.891 Personal history of nicotine dependence; Z95.818 Presence of other cardiac implants and grafts; Z79.4 Long term (current) use of insulin; Z79.899 Other long term (current) drug therapy; Z68.34 Body mass index [BMI] 34.0-34.9, adult
CPT/HCPCS: 10790; 15002; 50010; 50101; 50249; 50386; 50455; 50525; 50555; 51489; 52265; 53310; 54022; 54118; 56525; 56526; 56641; 57006; 57092; 57119; 57130; 57131; 57153; 57154; 62110; 62900; 64029; 65002; 70005

== ENCOUNTER 2019-10-26 14:05 | Inpatient (IN) | payer OTHER ==
[2019-10-26] VITALS (13 sets, daily range): BP systolic 80–148; BP diastolic 35–70
[~2019-10-26] VITALS: Ht 175.3 cm; Wt 98.4 kg
[~2019-10-26 14:05] MED LIST changes: +HYDROCODON-ACE1 EAC7 PO; +ORPHENADRINE C100 M2 PO; +PROTONIX40 M1 PO; +STOOL SOFTENER100 M1 PO; +SYNTHROID88 MCG PO; +TRAMADOL 50 MG50 MG PO
[2019-10-26 14:40] LABS: HEMATOCRIT 47.9 % (42.0-52.0); MCHC 33.3 g/dL (28.0-37.0); MCV 92.9 fL (80.0-100.0); PLATELET COUNT 185 thou/uL (150-400); RBC 5.16 mil/uL (4.50-6.00); RDW 13.8 % (10.5-14.5); WBC 5.5 thou/uL (4.0-11.0)
[2019-10-26 14:43] LABS: ANION GAP 12 mmol/L (7-16); BUN 25 mg/dL (7-18); CALCIUM 9.2 mg/dL (8.5-10.1); CHLORIDE 101 mmol/L (98-107); CO2 24 mmol/L (21-32); CREATININE 1.5 mg/dL (0.7-1.3); GLUCOSE 232 mg/dL (74-106); POTASSIUM 3.6 mmol/L (3.5-5.1); SODIUM 137 mmol/L (136-145)
[2019-10-26 14:54] LABS: ALBUMIN 3.8 g/dL (3.4-5.0); LIPASE 538 U/L (73-393); SGOT 16 U/L (15-37); SGPT 31 U/L (30-65); TOTAL BILIRUBIN 0.6 mg/dL (0.2-1.0); TOTAL PROTEIN 7.1 g/dL (6.4-8.2); TROPONIN-I <0.06 ng/mL (<0.06)
[2019-10-26 15:13] LABS: PROTIME 10.4 Seconds (9.3-11.4)
[2019-10-26 15:28] LABS: ANISOCYTOSIS 1+
[2019-10-26 15:36] LABS: BE(vivo) -8.4 mmol/L (-2 to +3); HCO3 17.2 mmol/L (22.0-26.0); PO2 87.4 mmHg (80.0-100.0); sO2 95.8 % (92.0-98.0)
[2019-10-26 15:37] LABS: pH 7.296 (7.360-7.450)
--- NOTE | 2019-10-26 18:08 | NUR ---
VASCULAR ACCESS CONSULTED FOR CVAD. PT'S LABS,MEDS,HISTORY,ORDER AND CONSENT VERIFIED. DISCUSSED BENEFITS AND RISK OF CVAD WITH PT, VERBALIZED UNDERSTANDING. RIJ WAS WIDELY PATENT WITH USG. 6FR 25CM TL POWER JACC INSERTED TO 6CM EXTERNAL. STAT CXR ORDERED. PT TOLERATED WELL
--- NOTE | 2019-10-26 18:57 | NUR ---
CXR SHOWED LINE LOOPED, LINE POWER FLUSHED AND REPOSITIONED. ANOTHER STAT CXR ORDERED
--- NOTE | 2019-10-26 19:05 | NUR ---
CENTRAL LINE APPEARS KINKED ON X-RAY. IV TEAM TO GET ANOTHER CENTRAL LINE KIT
--- NOTE | 2019-10-26 19:28 | NUR ---
AFTER POWER FLUSHING 2ND CXR REMAINED LOOPED SO NEW KIT OBTAINED AND OTW WITH 5FR TL PICC TRIMMED TO 25CM INSERTED TO 6CM EXTERNAL NEW CXR ORDERED
--- NOTE | 2019-10-26 19:41 | NUR ---
cxr confirmed cvad placement in lower svc, central line released for immediate use per protocol
[2019-10-26 20:45] LABS: URINE BILIRUBIN NEGATIVE (Negative); URINE BLOOD NEGATIVE (Negative); URINE CLARITY CLEAR; URINE COLOR YELLOW; URINE GLUCOSE-RANDOM* 3+ (Negative); URINE KETONES 1+ (Negative); URINE LEUKOCYTES-REFLEX NEGATIVE (Negative); URINE NITRITE-REFLEX NEGATIVE (Negative); URINE PROTEIN (DIPSTICK) NEGATIVE (Negative); URINE SPECIFIC GRAVITY <= 1.005 (1.005-1.035); URINE UROBILINOGEN 0.2 E.U./dl (0.2-1.0)
--- NOTE | 2019-10-26 23:52 | NUR ---
PATIENT ADMITTED FROM ED DEPARTMENT AT 2024, PLACED ON MONITOR, EDUCATED CARPET SEWING MACHINE OPERATOR LIGHT AND FALL PRECAUTIONS. PATIENT IS ALERT AND ORIENTED X4, PAIN CONTROLLED WITH MEDICATION. SINUS RHYTHM ON CRTTS, LEVOPHED INFUSING FOR BLOOD PRESSURE SUPPORT. ON 2L NASAL CANNULA, O2 SAT REMAINS ABOVE 90%. PATIENT DID NOT URINATE IN ED DEPARTMENT, REESE CATHETER PLACED PER ORDER, 1700 ML OUTPUT IMMEDIATELY OF CLEAR YELLOW URING, UA AND CULTURE SENT. LACTIC DECREASED FROM 5.6 ADMISSION TO 1.8. CALLED INVESTIGATOR VICE JEAN CARLOS TO CLARIFY SEPSIS ORDER, NO NEW CONSULTS ORDERED, LABWORK COMPLETED, WILL RE-ASSESS IN AM., DOES NOT WANT PRN INSULIN GIVEN DUE TO PATIENT BEING NPO. WHEN ADMITTED PATIENT STATED HE COULD NOT FIND HIS WALLETT AND PANTS. ER AND SECURITY NOTIFIED. HIS GIRLFRIEND WAS AT THE NEIGHBOR'S HOUSE STATING SHE COULD NOT FIND HIS BELONGING. THE NEIGHBOR WENT TO HIS HOUSE AND FOUND WALLETT AND PANTS, PATIENT STATES HIS GIRLFRIEND HAS A HISTORY OF CONFUSOIN. ER AND SECURITY WAS NOTIFIED THAN PATIENT'S BELONGINGS HAS BEEN FOUND. SPOKE WITH SON (BRIAN) AT 2200 AND GAVE AN UPDATE ON PATIENT'S CONDITION. NO SIGN OF ACUTE DISTRESS NOTED AT THIS TIME. WILL CONTINUE TO MONITOR.
[2019-10-27] VITALS (35 sets, daily range): BP systolic 94–141; BP diastolic 33–74
--- NOTE | 2019-10-27 02:17 | NUR ---
DR. VELEZ CALLED FOR UPDATE ON PATIENT, RESULTS OF CT SCAN GIVEN, NO NEW ORDERS NOTED, WILL CONTINUE TO MONITOR.
[2019-10-27 04:14] LABS: ABSOLUTE NEUTROPHILS 11.8 thou/uL (1.4-8.2); BASOPHILS 0.1 % (0.0-2.0); EOSINOPHILS 0.1 % (0.0-3.0); HEMOGLOBIN 14.3 gm/dL (14.0-18.0); LYMPHOCYTES 1.8 % (24.0-44.0); MCH 30.1 pg (26.0-34.0); MCHC 32.5 g/dL (28.0-37.0); MCV 92.6 fL (80.0-100.0); MONOCYTES 6.8 % (1.0-8.0); PLATELET COUNT 218 thou/uL (150-400); POLYS 91.2 % (36.0-66.0); RBC 4.75 mil/uL (4.50-6.00); RDW 13.8 % (10.5-14.5); WBC 12.9 thou/uL (4.0-11.0)
[2019-10-27 04:15] LABS: CALCIUM 7.4 mg/dL (8.5-10.1); CREATININE 1.2 mg/dL (0.7-1.3); POTASSIUM 4.4 mmol/L (3.5-5.1)
[2019-10-27 04:16] LABS: MAGNESIUM 1.6 mg/dL (1.8-2.4)
--- NOTE | 2019-10-27 06:44 | NUR ---
PATIENT RESTED WELL THROUGHOUT THE NIGHT, CURRENT PAIN LEVEL IS 3/10. O2 WEANED TO 3L, PATIENT O2 SAT 93%. ATTEMPTED TO WEAN DOWN LEVOPHED, BLOOD PRESSURE DROPS SIGNIFICANTLY WHEN PAIN MEDICATION ADMINISTERED. LEVOPHED IS AT 8MCG/MIN. PATIENT HAD NO EMESIS EVENTS THROUGHOUT THE NIGHT. NO SIGN OF ACUTE DISTRESS NOTED AT THIS TIME. PATIENT PROGRESSING TOWARDS GOALS. WILL CONTINUE TO MONITOR.
--- NOTE | 2019-10-27 08:42 | EKG ---
[facility] [place] [address] ELECTROCARDIOGRAM REPORT Name: GAMALIEL PAN Room #: 247-P ADM IN M.R.#: [id number] Admission: 10/26/19 Attend Phys: Joselo Marrero MD Discharge: Date of : 44 Report #: [id number] THIS REPORT FOR: cc: Fausto Desai MD, Kirk D. MD Lundgren, Craig H. MD [facility] ~ THIS REPORT FOR: //name// [facility] ED Test Date: 2019-10-26 Test Time: 14:11:19 Pat Name: GAMALIEL PAN Department: Room: [facility] Gender: M Triple Valve Tester: PATRICIA : [id number] Requested By: Abraham Barros Order Number: [id number] MD: Adriel Bhagat Measurements Intervals [place] Rate: 66 P: -7 NH: 176 QRS: -20 QRSD: 97 T: 27 QT: 404 QTc: 424 Interpretive Statements Sinus rhythm Inferior infarct, old Compared to ECG 08/31/2017 10:39:19 No significant changes Electronically Signed On 10-27-2019 8:41:27 CDT by Adriel Bhagat [email or web address] <ELECTRONICALLY SIGNED> By: Adriel Bhagat MD, [facility] 10/27/19 [id number] Adriel Bhagat MD, [facility] /EPI
--- NOTE | 2019-10-27 10:20 | NUR ---
chart review. cm spoke with bedside nurse and pt does have phone in his room and is able to verbally communicate. cm spoke with pt via phone call. intro to cm and dcp. pt preferrs going by ryanne, he is a & o x 3 pleasant and able to make his needs know. " live house with sig other. no stairs. independent, manage own medication, and still drives vehicle. works little and works around the house. have cane and walker that don't use. have shower chair and grab bars. have support from son and daughter if needed"/ryanne. pt is on o2/L/pn and is not ever needed home o2. will need to try and wean o2 prior to dc.
--- NOTE | 2019-10-27 18:05 | NUR ---
WHEN WANDA, CLASSICS TEACHER WITH GI ROUNDED, SHE MODIFIED ORDERS FOR A SUPPOSITORY THEN FOLLOWED BY MIRALAX. PT HAD 2 STOOLS, MIRALAX ADMINISTERD. CLEAR LIQUIDS ADMINISTERED FOR EVENING MEAL. ALL WELL TOLERATED. BRIAN (MAXIM)- SON INQUIRING REGARDING PT STATUS, UPDATED. DISCUSSED DESIGNATED VISITOR WITH PT. HE SELECTED JARON CALHOUN HIS SIGNIFICANT OTHER/GIRLFRIEND.
[2019-10-28] VITALS (15 sets, daily range): BP systolic 120–143; BP diastolic 49–79
[2019-10-28 04:31] LABS: HEMATOCRIT 40.7 % (42.0-52.0); HEMOGLOBIN 13.6 gm/dL (14.0-18.0); MCH 30.9 pg (26.0-34.0); MCHC 33.4 g/dL (28.0-37.0); MCV 92.5 fL (80.0-100.0); RBC 4.4 mil/uL (4.50-6.00); RDW 13.7 % (10.5-14.5); WBC 9.4 thou/uL (4.0-11.0)
[2019-10-28 04:46] LABS: CALCIUM 7.7 mg/dL (8.5-10.1); POTASSIUM 4.2 mmol/L (3.5-5.1)
--- NOTE | 2019-10-28 04:48 | NUR ---
PATIENT ALERT AND ORIENTED X4, NO COMPLAINTS OF PAIN. SINUS RHYTHM ON SALES SUPPORT REP. TOLERATING CLEAR LIQUID DIET, NO BOWEL MOVEMENT THROUGHOUT THE NIGHT. REESE PATIENT WITH GREATER THAN 30ML/HR OUTPUT. PATIENT RESTED WELL THROUGHOUT THE NIGHT, CURRENTLY ON 2L NASAL CANNULA. PATIENT PROGRESSING TOWARDS GOALS, WILL CONTINUE TO MONITOR.
[2019-10-28 04:54] LABS: ALBUMIN 2.7 g/dL (3.4-5.0); DIRECT BILIRUBIN 0.2 mg/dL (<0.1-0.2); TOTAL BILIRUBIN 0.6 mg/dL (0.2-1.0); TOTAL PROTEIN 5.3 g/dL (6.4-8.2)
--- NOTE | 2019-10-28 13:03 | NUR ---
DISCHARGE NOTE: JULES reviewed chart and spoke with attending physician. Pt is medically stable for discharge home today. PT evaluated pt and discharged from their service. Pt is on room air. Discharge orders/summary completed. SW left voice message for pt on his cell phone. No discharge needs identified at this time. SW is available should needs arise.
== END 2019-10-28 16:45 | disposition home or self-care (01) | DRG 682 ==
LOC: ER 14:05 → ICU 16:23 → EROBS 16:23 → ICU 19:51
PROVIDERS: Emergency Medicine; Nurse Practitioner; ADMIT Hospitalist; ATTEND Hospitalist
PROC: 02HV33Z Insertion of Infusion Device into Superior Vena Cava, Percutaneous Approach (ICD-10-PCS; principal; 2019-10-26)
DX: N17.0 Acute kidney failure with tubular necrosis (principal); J96.01 Acute respiratory failure with hypoxia; E46 Unspecified protein-calorie malnutrition; N39.0 Urinary tract infection, site not specified; B37.89 Other sites of candidiasis; E03.9 Hypothyroidism, unspecified; E78.5 Hyperlipidemia, unspecified; K21.9 Gastro-esophageal reflux disease without esophagitis; E11.65 Type 2 diabetes mellitus with hyperglycemia; I25.10 Atherosclerotic heart disease of native coronary artery without angina pectoris; E11.22 Type 2 diabetes mellitus with diabetic chronic kidney disease; N18.9 Chronic kidney disease, unspecified; Z96.652 Presence of left artificial knee joint; K59.00 Constipation, unspecified; K80.20 Calculus of gallbladder without cholecystitis without obstruction; I95.9 Hypotension, unspecified; I12.9 Hypertensive chronic kidney disease with stage 1 through stage 4 chronic kidney disease, or unspecified chronic kidney disease; N40.0 Benign prostatic hyperplasia without lower urinary tract symptoms; R33.9 Retention of urine, unspecified; Z85.038 Personal history of other malignant neoplasm of large intestine; Z87.891 Personal history of nicotine dependence; Z68.32 Body mass index [BMI] 32.0-32.9, adult; Z88.8 Allergy status to other drugs, medicaments and biological substances; Z87.11 Personal history of peptic ulcer disease; Z95.5 Presence of coronary angioplasty implant and graft
CPT/HCPCS: 10078; 10203